=== PATIENT | female | born 1950 ===

== ENCOUNTER 2024-08-25 12:11 | Outpatient (CLI) | payer OTHER ==
[2024-08-25 13:05] VITALS: BP 155/79; O2SAT 99
[2024-08-25 14:00] VITALS: BP 150/69; O2SAT 99
[2024-08-25 14:15] VITALS: BP 145/88; O2SAT 99
[2024-08-25 14:30] VITALS: BP 140/70; O2SAT 99
[2024-09-02] MEDS ORDERED: SYNTHROID137 MCG PO (14:43)
[2024-09-02] MEDS ORDERED: IRBESARTAN150 MG PO (14:43)
== END 2024-08-26 16:00 | disposition home or self-care (01) ==
LOC: SONOGRAMA 12:11
PROVIDERS: ATTEND Internal Medicine
DX: D37.6 Neoplasm of uncertain behavior of liver, gallbladder and bile ducts (principal); C22.0 Liver cell carcinoma

== ENCOUNTER 2024-09-03 06:15 | Day surgery (SDC) | payer OTHER ==
[2024-09-02 12:42] LABS: PH,URINE 5.5 (5.0-8.0); URINE APPEARANCE Clear; URINE BILIRRUBIN Negative (NEGATIVE); URINE BLOOD Small; URINE COLOR Yellow; URINE GLUCOSE Negative (NEGATIVE); URINE KETONE Trace (NEGATIVE); URINE LEUKOCYTE Small; URINE NITRATE Negative; URINE PROTEIN Negative (NEGATIVE); URINE UROBILINOGEN 0.2 E.U./dl
[2024-09-02 12:45] LABS: URINE BACTERIA 528.7 uL (0.0-1933); URINE EPITHELIAL CELLS 21.6 uL (0.0-38.8); URINE RBC 59.5 uL (0.0-20.8); URINE WBC 43.8 uL (0.0-23.2)
[2024-09-02 12:46] LABS: URINE CAST 0.14 uL (0.0-1.40)
[2024-09-02 13:03] LABS: COVID-19 AG NEGATIVE (NEGATIVE)
[~2024-09-03 06:15] MED LIST: IRBESARTAN150 MG PO; SYNTHROID137 MCG PO
[2024-09-03] MEDS ORDERED: CEFAZOLIN SODIUM 1,000 MG VIAL ONE (10:23)
[2024-09-03] MEDS ORDERED: CHLORHEXIDINE GLUCONATE 120 ML BOTTLE TOP ONE (16:30)
[2024-09-03] MEDS ORDERED: ONDANSETRON HCL 2 MG/ML VIAL ONE (20:07)
== END 2024-09-03 21:40 | disposition home or self-care (01) ==
LOC: CIR.AMB 06:15
PROVIDERS: ATTEND Surgery
DX: C50.411 Malignant neoplasm of upper-outer quadrant of right female breast (principal)

== ENCOUNTER 2024-10-14 07:16 | Outpatient (CLI) | payer OTHER | END 2024-10-14 07:17 | disposition home or self-care (01) | LOC: TOM 07:16 | PROVIDERS: ATTEND Internal Medicine | DX: K56.600 Partial intestinal obstruction, unspecified as to cause (principal); K57.30 Diverticulosis of large intestine without perforation or abscess without bleeding ==